=== PATIENT | female | born 1985 ===

== ENCOUNTER 2019-04-21 13:01 | Emergency (ER) | payer OTHER ==
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
[~2019-04-21 13:01] MED LIST changes: -CARI-1 PO; +DIPHTH/TETANUS/ACEL. PERTUSSIS IM ONE; -ONDA4TAB9 PO; -TRAM-420 PO
[2019-04-21 13:12] LABS: PLATELET COUNT, AUTOMATED 278 K/uL (150-450)
[2019-04-21 13:18] LABS: INR 1.02
[2019-04-21] MEDS ORDERED: IOPAMIDOL 76% 100 ML INFUS BTL 100 ML ONE (13:22)
[2019-04-21] MEDS ORDERED: fentaNYL CITR 100 MCG/2 ML AMP IVP ONE ×2 (13:40→14:30)
[2019-04-21] MEDS ORDERED: TETRACAIN/EPI/LIDO GEL 3ML SYR TP ONE (15:20)
[2019-04-21] MEDS ORDERED: DIPHTH/TETANUS/ACEL. PERTUSSIS IM ONLY ONE (15:52)
[2019-04-21] MEDS ORDERED: CARI-1 PO (16:30)
[2019-04-21] MEDS ORDERED: ONDA4TAB9 PO (16:30)
[2019-04-21] MEDS ORDERED: TRAM-420 PO (16:30)
[2019-04-21 16:41] VITALS: BP 94/60
== END 2019-04-21 17:17 | disposition home or self-care (01) ==
LOC: ER 13:02
DX: S16.1XXA Strain of muscle, fascia and tendon at neck level, initial encounter (principal); S29.012A Strain of muscle and tendon of back wall of thorax, initial encounter; S60.511A Abrasion of right hand, initial encounter; S60.512A Abrasion of left hand, initial encounter; S39.011A Strain of muscle, fascia and tendon of abdomen, initial encounter
CPT/HCPCS: 70450; 71045; 71260; 72125; 72170; 74177; 80320; 81001; 82150; 83605; 83690; 84703; 85025; 85610; 85730; 86850; 86900; 86901; 90471; 90715; 96374; 96376; 99284; J3010; L0172; Q9967; 82040; 82247; 82310; 82374; 82435; 82565; 82947; 84075; 84132; 84155; 84295; 84450; 84460; 84520

== ENCOUNTER → 2019-04-21 | Outpatient (CLI) | payer OTHER ==
[~2019-04-21] MED LIST: CARI-1 PO; ONDA4TAB9 PO; TRAM-420 PO
== END ==
LOC: AMB 12:09
PROVIDERS: ATTEND Nurse Practitioner
DX: M54.5 Low back pain (principal); S60.811A Abrasion of right wrist, initial encounter; V23.5XXA Motorcycle passenger injured in collision with car, pick-up truck or van in traffic accident, initial encounter
CPT/HCPCS: A0425; A0427